=== PATIENT | female | born 1970 | race Caucasian/White ===

== ENCOUNTER 2017-10-24 14:26 | Emergency (ER) | payer MEDICAID ==
[~2017-10-24] VITALS: Ht 157.5 cm; Wt 58.0 kg
[~2017-10-24 14:26] MED LIST: NAPR-576 PO
[2017-10-24 14:31] VITALS: BP 129/72; PULSE 90; RESP 16; TEMP 98.2; O2SAT 100
[2017-10-24] MEDS ORDERED: PERC5TAB12 PO ×2 (14:45→17:27)
[2017-10-24] MEDS ORDERED: MORPHINE SULFATE 4 MG/ML INJ IV PUSH ONE (15:15)
[2017-10-24] MEDS ORDERED: SODIUM CHLOR 0.9% 1000 ML INJ 1,000 ML IV ONE (15:15)
--- NOTE | 2017-10-24 15:33 | PD ---
HPI Chief Complaint: Abdominal Pain Time Seen by Provider: 15:03 Travel History International Travel<30 days: No Contact w/Intl Traveler<30days: No Traveled to known affect area: No History of Present Illness HPI This is a 47-year-old female who presents to the emergency department with 1 week of abdominal pain. She had an umbilical hernia repaired one week ago in [place]. Ever since then she's had severe pain all over her abdomen, constant, described as feeling a fullness in her abdomen and pressure. She says she tries to eat but she feels like she can't feel anything in her stomach. She denies any fevers or chills. She denies any vomiting but she does feel nauseous. She says she was taking Percocet for the pain but she ran out and she doesn't feel any better. She says she's been having bowel movements normally. She said she had a hysterectomy in her gallbladder out she' s never had pain like this before. PFSH Past Medical History Medical History: Denies Significant Hx Diminished Hearing: No Tetanus Vaccination: > 5 Years Influenza Vaccination: No ?: Not Past Surgical History Abdominal Surgery: Yes (HERNIA REPAIR) Hysterectomy: Yes Social History Alcohol Use: Yes (SOCIAL ) Tobacco Use: Yes (1/2 PPD) Substance Use: No Allergies-Medications (Allergen,Severity, Reaction): Coded Allergies: nitrofurantoin (Verified Allergy, Intermediate, 10/24/17) No Known Allergies (Unverified Allergy, Unknown, 10/24/17) Reported Meds & Prescriptions Reported Meds & Active Scripts Active Reported Percocet (Oxycodone-Acetaminophen) 5-325 mg Tab 1-2 Tab PO Q4H PRN Review of Systems Except as stated in HPI: all other systems reviewed are Neg Physical Exam Narrative GENERAL:Well appearing, no acute distress SKIN: Focused skin assessment warm and dry. HEAD: Atraumatic. Normocephalic. EYES: Pupils equal and round. No injection or drainage. ENT: Moist mucous membranes NECK: Trachea midline. CARDIOVASCULAR: Regular rate and rhythm. No murmur appreciated. RESPIRATORY: Clear to auscultation. Breath sounds equal bilaterally. GASTROINTESTINAL: Abdomen soft, diffusely tender to palpation with no rebound or guarding. MUSCULOSKELETAL: No obvious deformities. NEUROLOGICAL: Awake and alert. No obvious cranial nerve deficits. Moving all extremities. PSYCHIATRIC: Appropriate mood and affect; insight and judgment normal. Data Data Last Documented VS Vital Signs Date Time Temp Pulse Resp B/P (MAP) Pulse Ox O2 Delivery O2 Flow Rate FiO2 10/24/17 16:55 81 20 131/82 (98) 100 10/24/17 14:31 98.2 Orders Orders Complete Blood Count With Diff (10/24/17 15:10) Comprehensive Metabolic Panel (10/24/17 15:10) ^ Insert Iv (10/24/17 15:10) Ct Abd/Pel W Iv Contrast(Rout) (10/24/17 ) Morphine Inj (Morphine Inj) (10/24/17 15:15) Sodium Chlor 0.9% 1000 Ml Inj (Ns 1000 M (10/24/17 15:15) Ondansetron Inj (Zofran Inj) (10/24/17 15:50) Urinalysis - C+S If Indicated (10/24/17 15:58) Ondansetron Inj (Zofran Inj) (10/24/17 16:30) Iohexol 350 Inj (Omnipaque 350 Inj) (10/24/17 16:35) Labs Laboratory Tests Test 10/24/17 15:40 10/24/17 16:00 White Blood Count 10.3 TH/MM3 Red Blood Count 4.26 MIL/MM3 Hemoglobin 13.0 GM/DL Hematocrit 39.9 % Mean Corpuscular Volume 93.6 FL Mean Corpuscular Hemoglobin 30.4 PG Mean Corpuscular Hemoglobin Concent 32.5 % Red Cell Distribution Width 13.0 % Platelet Count 321 TH/MM3 Mean Platelet Volume 8.2 FL Neutrophils (%) (Auto) 75.2 % Lymphocytes (%) (Auto) 14.9 % Monocytes (%) (Auto) 5.5 % Eosinophils (%) (Auto) 3.4 % Basophils (%) (Auto) 1.0 % Neutrophils # (Auto) 7.7 TH/MM3 Lymphocytes # (Auto) 1.5 TH/MM3 Monocytes # (Auto) 0.6 TH/MM3 Eosinophils # (Auto) 0.4 TH/MM3 Basophils # (Auto) 0.1 TH/MM3 CBC Comment DIFF FINAL Differential Comment Blood Urea Nitrogen 8 MG/DL Creatinine 0.49 MG/DL Random Glucose 78 MG/DL Total Protein 7.3 GM/DL Albumin 3.4 GM/DL Calcium Level 8.6 MG/DL Alkaline Phosphatase 382 U/L Aspartate Amino Transf (AST/SGOT) 142 U/L Alanine Aminotransferase (ALT/SGPT) 210 U/L Total Bilirubin 0.6 MG/DL Sodium Level 134 MEQ/L Potassium Level 5.0 MEQ/L Chloride Level 102 MEQ/L Carbon Dioxide Level 26.2 MEQ/L Anion Gap 6 MEQ/L Estimat Glomerular Filtration Rate 136 ML/MIN Urine Collection Type CLEAN CATCH Urine Color YELLOW Urine Turbidity CLEAR Urine pH 6.0 Urine Specific Lawrence 1.006 Urine Protein NEG mg/dL Urine Glucose (UA) NEG mg/dL Urine Ketones NEG mg/dL Urine Occult Blood SMALL Urine Nitrite NEG Urine Bilirubin NEG Urine Leukocyte Esterase NEG Urine RBC 0-3 /hpf Urine Squamous Epithelial Cells > 8 /hpf Microscopic Urinalysis Comment CULT NOT INDICATED Urine Collection Time 16:00 [facility] Medical Decision Making Medical Screen Exam Complete: Yes Emergency Medical Condition: Yes Interpretation(s) No leukocytosis Mild transaminitis and alkaline phosphatase elevation Urinalysis is negative for infection Last 24 hours Impressions Abdomen/Pelvis CT 10/24/17 0000 Signed Impressions: Service Date/Time: Friday, October 24, 2017 16:25 - CONCLUSION: Along the anterior aspect left lobe of liver there is a elongated fluid collection measuring 5.3 x 1.0 cm across. The adjacent peritoneum is quite indurated raise possibility of low-grade inflammation or infection. Status post cholecystectomy. Tiny amount of air within the bladder correlate for recent catheterization. Previous hernia repair without evidence of recurrence. Uri Guerra MD Differential Diagnosis Postoperative pain, abscess, urinary tract infection, perforated viscus Narrative Course This is a 47-year-old female who presents to the emergency department with abdominal pain that's been persistent ever since she had an umbilical hernia surgery one week ago. She is placed in a monitor and an IV was established. Labs were obtained which were reassuring. CT abdomen and pelvis demonstrates a 1 x 5 cm fluid collection adjacent to the liver. I spoke to Dr. palma who performed her surgery. He says he is received multiple calls from this patient throughout the week for refills on pain medication and he is concerned about drug-seeking behavior. He doesn't think the fluid collection is infection and he thinks that's just normal postoperative changes. She has no leukocytosis and she is afebrile. Patient will be given a short course of pain control and was asked to follow-up with the surgeon in clinic on Friday. Diagnosis Primary Impression: Postoperative pain Patient Instructions: General Instructions Additional Instructions: If you develop severe or worsening abdominal pain, fever>100.4, persistent vomiting or inability to eat or drink return to the emergency department immediately. Follow-up with your surgeon in clinic on Friday without fail. Med/Other Pt SpecificInfo: Prescription(s) given Scripts Oxycodone-Acetaminophen (Percocet) 5-325 mg Tab 1 TAB PO Q6H Y for PAIN, #10 TAB 0 Refills Prov: Leticia Boyer MD 10/24/17 Disposition: 01 DISCHARGE HOME Condition: Stable Leticia Boyer MD Oct 24, 2017 15:33
[2017-10-24 15:48] LABS: AUTOMATED NEUTROPHIL # 7.7 TH/MM3 (1.8-7.7); BASOPHIL # 0.1 TH/MM3 (0-0.2); EOSINOPHIL # 0.4 TH/MM3 (0-0.4); EOSINOPHIL % 3.4 % (0.0-4.0); HEMATOCRIT 39.9 % (35.0-46.0); HEMO FLAGS DIFF FINAL; LYMPH % 14.9 % (9.0-44.0); LYMPHOCYTE # 1.5 TH/MM3 (1.0-4.8); MEAN CELL VOLUME 93.6 FL (80.0-100.0); MEAN CORPUSCULAR HEMOGLOBIN 30.4 PG (27.0-34.0); MEAN CORPUSCULAR HGB CONC 32.5 % (32.0-36.0); MONO % 5.5 % (0.0-8.0); NEUT % 75.2 % (16.0-70.0); PLATELET COUNT 321 TH/MM3 (150-450); RED BLOOD COUNT 4.26 MIL/MM3 (4.00-5.30); WHITE BLOOD COUNT 10.3 TH/MM3 (4.0-11.0)
[2017-10-24] MEDS ORDERED: ONDANSETRON HCL 4 MG/2 ML VIAL ONE (15:50)
[2017-10-24 15:56] LABS: CHLORIDE 102 MEQ/L (98-107); SODIUM (NA) 134 MEQ/L (136-145)
[2017-10-24 16:00] LABS: ANION GAP 6 MEQ/L (5-15); BICARBONATE 26.2 MEQ/L (21.0-32.0); BLOOD UREA NITROGEN 8 MG/DL (7-18)
[2017-10-24 16:03] LABS: ALT (GPT) 210 U/L (10-53); AST (GOT) 142 U/L (15-37); GLOMERULAR FILTRATION RATE 136 ML/MIN (>89)
[2017-10-24 16:05] LABS: TOTAL BILIRUBIN ADULT 0.6 MG/DL (0.2-1.0)
[2017-10-24 16:06] LABS: ALKALINE PHOSPHATASE 382 U/L (45-117)
[2017-10-24 16:14] LABS: BLOOD, URINE SMALL (NEG); GLUCOSE,URINE NEG (NEG); KETONE, URINE NEG (NEG); NITRITE,URINE NEG (NEG)
[2017-10-24 16:22] LABS: METHOD OF COLLECTION CLEAN CATCH; URINE COLOR YELLOW (YELLW/STRAW)
[2017-10-24 16:23] LABS: COMMENT (UR) CULT NOT INDICATED; CULTURE IF INDICATED CULT NOT INDICATED; RBC, URINE 0-3 /hpf (0-3); SQUAMOUS EPITHELIAL CELL URINE > 8 /hpf (0-5)
[2017-10-24] MEDS ORDERED: ONDANSETRON HCL 4 MG/2 ML VIAL IV ONE (16:30)
[2017-10-24] MEDS ORDERED: IOHEXOL 350 MG/ML 10 ML VIAL (for RAD DIAG) IVCONTRAST ONE (16:35)
--- NOTE | 2017-10-24 16:46 | RADRPT ---
EXAM DATE/TIME: 10/24/2017 16:25 [facility] COMPARISON: No previous studies available for comparison. INDICATIONS : Diffuse abdominal pain since Oct 17, umbilical hernia repair that day. IV CONTRAST: 85 cc Omnipaque 350 (iohexol) IV ORAL CONTRAST: No oral contrast ingested. RADIATION DOSE: 5.44 CTDIvol (mGy) MEDICAL HISTORY : Hernia, umbilical. SURGICAL HISTORY : Umbilical hernia repair. Hysterectomy. ENCOUNTER: Initial ACUITY: 1 week PAIN SCALE: 8/10 LOCATION: Diffuse abdomen. TECHNIQUE: Volumetric scanning of the abdomen and pelvis was performed. Using automated exposure control and ad justment of the mA and/or kV according to patient size, radiation dose was kept as low as reasonably achievable to obtain optimal diagnostic quality images. DICOM format image data is available electro nically for review and comparison. FINDINGS: LOWER LUNGS: The visualized lower lungs are clear. LIVER: Homogeneous density without lesion except for a hypoechoic collection along the anterior aspect of th e liver. Tibia small subcapsular fluid collection. The peritoneum adjacent to this is quite indurated possible peritonitis or inflammation. There is mild dilation of the biliary tree status post cholecy stectomy. SPLEEN: Normal size without lesion. PANCREAS: Within normal limits. KIDNEYS: Normal in size and shape. There is no mass, stone or hydronephrosis. ADRENAL GLANDS: Within normal limits. VASCULAR: There is no aortic aneurysm. BOWEL/MESENTERY: The stomach, small bowel, and colon demonstrate no acute abnormality. There is no free intraperitone al air or fluid. ABDOMINAL WALL: Within normal limits. RETROPERITONEUM: There is no lymphadenopathy. BLADDER: No wall thickening or mass. There is some air within the bladder correlate for recent catheterization REPRODUCTIVE: Within normal limits. Trace free fluid INGUINAL: There is no lymphadenopathy or hernia. MUSCULOSKELETAL: Within normal limits for patient age. CONCLUSION: Along the anterior aspect left lobe of liver there is a elongated fluid collection measuring 5.3 x 1. 0 cm across. The adjacent peritoneum is quite indurated raise possibility of low-grade inflammation o r infection. Status post cholecystectomy. Tiny amount of air within the bladder correlate for recent catheterizati on. Previous hernia repair without evidence of recurrence. Uri Guerra MD on October 24, 2017 at 16:41 Board Certified Radiologist. This report was verified electronically.
[2017-10-24 16:55] VITALS: BP 131/82; PULSE 81; RESP 20; O2SAT 100
== END 2017-10-24 17:41 | disposition home or self-care (01) ==
LOC: PHED 14:26
DX: G89.18 Other acute postprocedural pain (principal); F17.200 Nicotine dependence, unspecified, uncomplicated
CPT/HCPCS: 74177; 80053; 81001; 85025; 96361; 96374; 96375; 99285; J2270; J2405; J7030; Q9967

== ENCOUNTER 2018-05-12 11:43 | Emergency (ER) | payer MEDICAID ==
[~2018-05-12] VITALS: Ht 157.5 cm; Wt 54.0 kg
[~2018-05-12 11:43] MED LIST changes: -NAPR-576 PO; +PERC5TAB12 PO
[2018-05-12 12:18] VITALS: BP 124/65; PULSE 71; RESP 17; TEMP 98.3; O2SAT 100
[2018-05-12] MEDS ORDERED: KETOROLAC TROMETHAMINE 60 MG/2 ML (IM) VIAL IM ONE (12:30)
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
[2018-05-12] MEDS ORDERED: ROBA500T PO (13:47)
[2018-05-12] MEDS ORDERED: IBUP1TAB7 PO (13:47)
== END 2018-05-12 15:00 | disposition home or self-care (01) ==
LOC: NEPK 11:43
DX: S20.211A Contusion of right front wall of thorax, initial encounter (principal); F17.200 Nicotine dependence, unspecified, uncomplicated; W20.8XXA Other cause of strike by thrown, projected or falling object, initial encounter
CPT/HCPCS: 71101; 96372; 99283; J1885

== ENCOUNTER 2018-05-13 21:55 | Emergency (ER) | payer OTHER, MEDICAID ==
[~2018-05-13] VITALS: Ht 157.5 cm; Wt 56.0 kg
[~2018-05-13 21:55] MED LIST changes: +IBUP1TAB7 PO; +ROBA500T PO
[2018-05-13 22:04] VITALS: BP 149/82; PULSE 79; RESP 18; O2SAT 100
[2018-05-13] MEDS ORDERED: DIPHTH/TETANUS/ACEL PERTUSSIS (BOOSTER) 0.5 ML VIAL/PFS IM ONE (22:15)
[2018-05-13] MEDS ORDERED: ceFAZolin 2 GM PREMIX 100 ML IV ONE (22:15)
[2018-05-13] MEDS ORDERED: SODIUM CHLORIDE 0.9% FLUSH 10 ML FLUSH IVF PRN (22:15)
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
[2018-05-13 22:21] VITALS: O2SAT 99
[2018-05-13 22:31] LABS: AUTOMATED NEUTROPHIL # 7.1 TH/MM3 (1.8-7.7); BASOPHIL % 0.3 % (0.0-2.0); EOSINOPHIL # 0.3 TH/MM3 (0-0.4); EOSINOPHIL % 3.1 % (0.0-4.0); HEMATOCRIT 39.7 % (35.0-46.0); HEMOGLOBIN 13.7 GM/DL (11.6-15.3); LYMPH % 25.7 % (9.0-44.0); LYMPHOCYTE # 2.8 TH/MM3 (1.0-4.8); MEAN CORPUSCULAR HEMOGLOBIN 31.3 PG (27.0-34.0); MEAN CORPUSCULAR HGB CONC 34.4 % (32.0-36.0); MEAN PLATELET VOLUME 8.9 FL (7.0-11.0); MONOCYTE # 0.5 TH/MM3 (0-0.9); NEUT % 65.9 % (16.0-70.0); PLATELET COUNT 260 TH/MM3 (150-450); RED BLOOD COUNT 4.37 MIL/MM3 (4.00-5.30); RED CELL DISTRIBUTION WIDTH 13.2 % (11.6-17.2); WHITE BLOOD COUNT 10.7 TH/MM3 (4.0-11.0)
--- NOTE | 2018-05-13 22:33 | PD ---
Physical Exam Time Seen by Provider: 22:32 Data Data Last Documented VS Vital Signs Date Time Temp Pulse Resp B/P (MAP) Pulse Ox O2 Delivery O2 Flow Rate FiO2 05/13/18 22:21 99 Room Air 05/13/18 22:04 79 18 149/82 (104) Orders Orders I-Stat Profile (05/13/18 22:08) Complete Blood Count With Diff (05/13/18 22:08) Prothrombin Time / Inr (Pt) (05/13/18 22:08) Act Partial Throm Time (Ptt) (05/13/18 22:08) Type And Screen (05/13/18 22:08) Ct Brain W/O Iv Contrast(Rout) (05/13/18 22:08) Ct Cerv Spine W/O Contrast (05/13/18 22:08) Ct Abd/Pel W Iv Contrast(Rout) (05/13/18 22:08) Ct Thorax/ Chest W Iv Contrast (05/13/18 22:08) Ct Facial Bones W/O Iv Cont (05/13/18 22:08) Iv Access Insert/Monitor (05/13/18 22:08) Ecg Monitoring (05/13/18 22:08) Oximetry (05/13/18 22:08) Oxygen Administration (05/13/18 22:08) Cefazolin 2 Gm Premix (Ancef 2 Gm Premix (05/13/18 22:15) Holb-Ysg-Tcvble (Booster) Inj (Boostrix (05/13/18 22:15) Sodium Chloride 0.9% Flush (Ns Flush) (05/13/18 22:15) Fentanyl Inj (Fentanyl Inj) (05/13/18 22:15) Labs Laboratory Tests Test 05/13/18 22:15 [facility] Medical Record Reviewed: Yes Supervised Visit with JAMILA: No Procedures Procedure Narrative LACERATION LOCATION: Right knee LENGTH: 2-1/2 cm NUMBER OF STITCHES/ROWENA: 2 rowena REPAIR: The area of the laceration was prepped with Betadine and sterilely draped. The wound was copiously irrigated and explored without evidence of foreign body, tendon injury or neurovascular injury. The wound was closed using rowena. This was a single layer repair. Patient tolerated the procedure well. Condition: Stable Nancy Busch May 13, 2018 22:33
[2018-05-13 23:03] LABS: INTERNATIONAL NORMALIZED RATIO 1.1 RATIO; PROTHROMBIN TIME - PATIENT 10.7 SEC (9.8-11.6)
[2018-05-13] MEDS ORDERED: IOHEXOL 350 MG/ML 10 ML VIAL (for RAD DIAG) IVCONTRAST ONE (23:19)
[2018-05-13 23:30] VITALS: BP 123/89; PULSE 73; RESP 16; O2SAT 99
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
[2018-05-13] MEDS ORDERED: MORPHINE SULFATE 4 MG/ML INJ IV PUSH ONE (23:45)
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
[2018-05-14 01:40] VITALS: BP 142/75; PULSE 84; RESP 16; O2SAT 100
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
[2018-05-14] MEDS ORDERED: BACI28.3 TOPICAL (02:27)
[2018-05-14] MEDS ORDERED: CEPH-459 PO (02:27)
[2018-05-14] MEDS ORDERED: MORPHINE SULFATE 4 MG/ML INJ IV PUSH ONE (02:30)
[2018-05-14] MEDS ORDERED: DIAZ5 PO (02:30)
[2018-05-14] MEDS ORDERED: NORC5TAB PO (02:30)
[2018-05-14] MEDS ORDERED: IBUP-232 PO (02:31)
== END 2018-05-14 03:05 | disposition home or self-care (01) ==
LOC: NEPE 21:55
DX: S01.81XA Laceration without foreign body of other part of head, initial encounter (principal); S81.012A Laceration without foreign body, left knee, initial encounter; S81.011A Laceration without foreign body, right knee, initial encounter; V49.49XA Driver injured in collision with other motor vehicles in traffic accident, initial encounter; Z72.0 Tobacco use; Z23 Encounter for immunization
CPT/HCPCS: 12001; 70450; 70486; 71260; 72125; 73552; 73560; 73564; 74177; 80048; 85025; 85610; 85730; 86850; 86900; 86901; 90471; 90715; 96365; 96375; 99285; J0690; J2270; J3010; Q9967

== ENCOUNTER 2018-05-24 16:18 | Emergency (ER) | payer OTHER, MEDICAID ==
[~2018-05-24] VITALS: Ht 157.5 cm; Wt 55.0 kg
[~2018-05-24 16:18] MED LIST changes: +BACI28.3 TOPICAL; +CEPH-459 PO; +DIAZ5 PO; +IBUP-232 PO; +NORC5TAB PO
[2018-05-24 16:31] VITALS: BP 138/86; PULSE 83; RESP 18; TEMP 97.9; O2SAT 100
[2018-05-24] MEDS ORDERED: LIDO1ADH4 TOPICAL (18:26)
[2018-05-24] MEDS ORDERED: ROBA750T PO (18:26)
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
== END 2018-05-24 19:14 | disposition home or self-care (01) ==
LOC: NEPD 16:18
DX: S01.111D Laceration without foreign body of right eyelid and periocular area, subsequent encounter (principal); S81.011D Laceration without foreign body, right knee, subsequent encounter; Z48.02 Encounter for removal of sutures; Z87.81 Personal history of (healed) traumatic fracture; V89.2XXD Person injured in unspecified motor-vehicle accident, traffic, subsequent encounter
CPT/HCPCS: 99281